=== PATIENT | female | born 1980 ===

== ENCOUNTER 2016-12-19 09:11 | Day surgery (SDC) | payer MEDICARE, MEDICAID ==
[~2016-12-19 09:11] MED LIST: METOPROLOL TART25 M1 PO; RENAGEL PO; ZOLOFT50 M1 PO
== END 2016-12-19 13:50 ==
LOC: SHSB 09:11 → PACU 12:28 → SHSB 12:55
PROC: 037C3ZZ Dilation of Left Radial Artery, Percutaneous Approach (ICD-10-PCS; principal; 2016-12-19)
DX: T82.858A Stenosis of other vascular prosthetic devices, implants and grafts, initial encounter (principal); E11.22 Type 2 diabetes mellitus with diabetic chronic kidney disease; I12.0 Hypertensive chronic kidney disease with stage 5 chronic kidney disease or end stage renal disease; N18.6 End stage renal disease; F41.9 Anxiety disorder, unspecified; F32.9 Major depressive disorder, single episode, unspecified; F17.210 Nicotine dependence, cigarettes, uncomplicated; Z87.19 Personal history of other diseases of the digestive system; Y83.8 Other surgical procedures as the cause of abnormal reaction of the patient, or of later complication, without mention of misadventure at the time of the procedure; Z98.890 Other specified postprocedural states
CPT/HCPCS: C1725; C1769; C1887; J7030; Q9967